=== PATIENT | female | born 1990 | race Caucasian/White ===

== ENCOUNTER 2017-09-25 07:54 | Emergency (ER) | payer SELFPAY ==
[~2017-09-25] VITALS: Ht 172.7 cm; Wt 86.2 kg
[2017-09-25 08:11] VITALS: BP 121/85
== END 2017-09-25 13:10 | disposition left against medical advice (07) ==
LOC: ER 07:54
DX: L02.11 Cutaneous abscess of neck (principal); Z53.21 Procedure and treatment not carried out due to patient leaving prior to being seen by health care provider

== ENCOUNTER 2019-10-27 07:56 | Emergency (ER) | payer MEDICAID ==
[~2019-10-27] VITALS: Ht 172.7 cm; Wt 90.7 kg
[2019-10-27 08:09] VITALS: BP 123/77
[2019-10-27] MEDS ORDERED: KETOROLAC TROMETH 60MG/2ML VIAL IM ONE (09:15)
== END 2019-10-27 11:14 | disposition home or self-care (01) ==
LOC: ER 07:56
DX: N20.0 Calculus of kidney (principal); M79.605 Pain in left leg; M79.604 Pain in right leg
CPT/HCPCS: 72100; 74176; 81002; 96372; 99284; J1885

== ENCOUNTER 2020-10-07 20:00 | Observation (INO) | payer BC ==
[~2020-10-07] VITALS: Ht 172.7 cm; Wt 90.7 kg
[2020-10-07] MEDS ORDERED: NIFEdipine 10 MG CAP PO ONE (21:00)
== END 2020-10-07 22:33 | disposition home or self-care (01) ==
LOC: LDRP 20:00
PROVIDERS: ADMIT Specialist; ATTEND Specialist
DX: O99.891 Other specified diseases and conditions complicating pregnancy (principal); O62.9 Abnormality of forces of labor, unspecified; M54.5 Low back pain; Z3A.34 34 weeks gestation of pregnancy
CPT/HCPCS: 59025; 81002; G0378